=== PATIENT | female | born 1995 | race Caucasian/White ===

== ENCOUNTER 2021-10-30 05:07 | Inpatient (IN) ==
[2021-10-30] MEDS ORDERED: CITRIC ACID/SODIUM CITRATE 30 ML UDCUP PO ONE (05:21)
[2021-10-30] MEDS ORDERED: TRANEXAMIC ACID 1,000 MG in SODIUM CHLORIDE 0.9% 100 ML IV PRN (05:21)
[2021-10-30] MEDS ORDERED: CARBOPROST TROMETHAMINE 250 MCG/ML AMP IM PRN (05:21)
[2021-10-30] MEDS ORDERED: OXYTOCIN/LR 20 UNIT/1,000 ML BAG IV ONE ×3 (05:21→12:10)
[2021-10-30] MEDS ORDERED: miSOPROStoL 200 MCG TABLET RECTAL PRN (05:21)
[2021-10-30] MEDS ORDERED: METHYLERGONOVINE 0.2 MG/1 ML AMP IM PRN (05:21)
[2021-10-30] MEDS ORDERED: FAMOTIDINE 20 MG/2 ML VIAL IV ONE (05:21)
[2021-10-30] MEDS ORDERED: ceFAZolin 2,000 MG/50 ML DUPLEX IV ONE (05:21)
[2021-10-30] MEDS: LACTATED RINGERS 1,000 ML IV SCH ×4 (05:45→21:18)
[2021-10-30 06:14] LABS: Basophils % 0.4 % (0.0-0.8); Eosinophils # 0.1 10*3/uL (0.0-0.87); Eosinophils % 1.1 % (0.00-10.9); Hemoglobin 10.7 GM/DL (12.0-16.0); Immature Granulocytes % 2.5 %; Immature Granulocytes Absolute 0.27 #; Lymphocytes # 3.2 10*3/uL (1.4-4.0); Lymphocytes % 29.5 % (21.3-54.2); Mean Corpuscular HGB Conc 32.4 GM/DL (32-36); Mean Corpuscular Volume 81.7 FL (87-102); Mean Platelet Volume 11.4 FL (9.6-12.0); Monocytes # 0.9 10*3/uL (0.11-0.8); Monocytes % 8.1 % (1.7-12.7); Neutrophils % 58.4 % (38.7-73.9); Platelet Count 158 T/CUMM (130-400); Red Blood Count 4.04 MC/CUMM (3.8-5.5); Red Cell Distribution Width 14.5 % (9.3-17.3); White Blood Count 10.8 T/CUMM (4-12)
[2021-10-30] MEDS ORDERED: PHENYLEPHRINE 1 MG/10 ML SYRINGE IV ONE (06:53)
[2021-10-30] MEDS ORDERED: ONDANSETRON 4 MG/2 ML VIAL ONE (06:53)
[2021-10-30] MEDS ORDERED: ACETAMINOPHEN INJ 1,000 MG/100 ML VIAL IV ONE (06:53)
[2021-10-30] MEDS ORDERED: BUPIVACAINE SPINAL 0.75% 2 ML AMP SPINAL ONE (06:53)
[2021-10-30] MEDS ORDERED: KETOROLAC 30 MG/1 ML VIAL ONE (06:53)
[2021-10-30] MEDS ORDERED: buprenorphine HCL 0.3 MG/ML VIAL ONE (06:54)
[2021-10-30] MEDS ORDERED: SODIUM CHLORIDE 0.9% 0 ML IV ONE (07:00)
[2021-10-30] MEDS ORDERED: TRANEXAMIC ACID 1,000 MG/10 ML VIAL ONE (07:00)
[2021-10-30] MEDS ORDERED: miSOPROStoL 200 MCG TABLET ONE (07:00)
[2021-10-30] MEDS ORDERED: CARBOPROST TROMETHAMINE 250 MCG/ML AMP IM ONE (07:01)
[2021-10-30] MEDS ORDERED: METHYLERGONOVINE 0.2 MG/1 ML AMP ONE (07:01)
[2021-10-30 08:11] LABS: Bacteria,Urine Occasional /HPF (Few); Mucus,Urine Few /LPF (Occasional); RBC,Urine 4 /HPF (0-4); Squamous Epithelial Cell,Urine Occasional /HPF (0-10)
[2021-10-30 08:12] LABS: Bilirubin,Urine Negative (Negative); Blood, Urine Trace mg/dL (Negative); Glucose,Urine (UA) Negative (Negative); Ketones,Urine Negative (Negative); Nitrite,Urine Negative (Negative); Protein,Urine Negative (Negative); Urine Appearance Clear (Clear); Urine Color Yellow (Yellow); Urine Urobilinogen 0.2 eU/dL (<2.0)
[2021-10-30 08:16] LABS: Cord Arterial Blood HCO3 20.7 MMOL/L
[2021-10-30 08:19] LABS: Cord Venous Blood HCO3 21.7 MMOL/L; Cord Venous Blood PCO2 42.9 MMHG; Cord Venous Blood PO2 36.3
[2021-10-30] MEDS ORDERED: propofoL 200 MG/20 ML VIAL IV ONE (08:22)
[2021-10-30] MEDS: LABETALOL 200 MG TABLET PO SCH ×3 (09:22→20:09)
[2021-10-30] MEDS ORDERED: RHO(D) IMMUNE GLOBULIN 300 MCG SYRINGE IM ONE (12:10)
[2021-10-30] MEDS ORDERED: ACETAMINOPHEN 325 MG TABLET PO PRN (12:10)
[2021-10-30] MEDS ORDERED: LANOLIN 50% CREAM 0.3 OZ TUBE TOP PRN (12:10)
[2021-10-30] MEDS ORDERED: MEASLES/MUMPS/RUBELLA VACCINE 0.5 ML VIAL SUBCUT ONE (12:10)
[2021-10-30] MEDS ORDERED: DIPH/TET/ACEL PERT BOOSTER VACCINE 0.5 ML VIAL IM ONE (12:10)
[2021-10-30] MEDS ORDERED: WITCH HAZEL PADS 100/JAR TOP PRN (12:10)
[2021-10-30] MEDS ORDERED: HYDROCORTISONE 2.5% RECTAL CREAM 30 GM TUBE TOP PRN (12:10)
[2021-10-30] MEDS ORDERED: ONDANSETRON 4 MG/2 ML VIAL IV PRN (12:10)
[2021-10-30] MEDS ORDERED: oxyCODONE/ACETAMINOPHEN 5-325 MG TABLET PO PRN ×2 (12:10)
[2021-10-30] MEDS ORDERED: BENZOCAINE 20%/MENTHOL 0.5% SPRAY 56 GM CAN TOP PRN (12:10)
[2021-10-30] MEDS ORDERED: BISACODYL 10 MG SUPP RECTAL PRN (12:10)
[2021-10-30] MEDS: KETOROLAC 30 MG/1 ML VIAL IV SCH ×2 (14:07→20:10)
[2021-10-30] MEDS: ACETAMINOPHEN 500 MG TABLET PO SCH ×2 (15:21→22:58)
[2021-10-30] MEDS: DOCUSATE SODIUM 100 MG CAPSULE PO SCH ×2 (15:21→20:22)
[2021-10-31] MEDS: KETOROLAC 30 MG/1 ML VIAL IV SCH (02:17)
[2021-10-31] MEDS: ACETAMINOPHEN 500 MG TABLET PO SCH (04:18)
[2021-10-31 05:41] LABS: Basophils % 0.3 % (0.0-0.8); Eosinophils # 0.2 10*3/uL (0.0-0.87); Eosinophils % 1.8 % (0.00-10.9); Hematocrit 28.4 VOL% (35.7-47.0); Hemoglobin 9.3 GM/DL (12.0-16.0); Immature Granulocytes % 1.9 %; Immature Granulocytes Absolute 0.18 #; Lymphocytes # 2.5 10*3/uL (1.4-4.0); Lymphocytes % 25.6 % (21.3-54.2); Mean Corpuscular HGB Conc 32.7 GM/DL (32-36); Mean Corpuscular Volume 82.1 FL (87-102); Mean Platelet Volume 10.8 FL (9.6-12.0); Monocytes # 0.8 10*3/uL (0.11-0.8); Neutrophils % 62.4 % (38.7-73.9); Platelet Count 179 T/CUMM (130-400); Red Blood Count 3.46 MC/CUMM (3.8-5.5); Red Cell Distribution Width 14.9 % (9.3-17.3); White Blood Count 9.7 T/CUMM (4-12)
[2021-10-31] MEDS: LABETALOL 200 MG TABLET PO SCH ×3 (08:51→20:42)
[2021-10-31] MEDS: DOCUSATE SODIUM 100 MG CAPSULE PO SCH ×3 (08:51→20:35)
[2021-10-31] MEDS: IBUPROFEN 800 MG TABLET PO PRN ×2 (08:53→19:40)
[2021-10-31] MEDS ORDERED: FUROSEMIDE 20 MG TABLET PO ONE ×2 (14:00)
[2021-10-31] MEDS ORDERED: SIMETHICONE CHEW 80 MG TABLET PO PRN (19:34)
[2021-10-31] MEDS: FUROSEMIDE 20 MG TABLET PO SCH (20:43)
[2021-11-01 08:51] VITALS: BP 129/64
[2021-11-01] MEDS: LABETALOL 200 MG TABLET PO SCH (09:11)
[2021-11-01] MEDS: DOCUSATE SODIUM 100 MG CAPSULE PO SCH (09:12)
[2021-11-01] MEDS: FUROSEMIDE 20 MG TABLET PO SCH (09:12)
== END 2021-11-01 11:20 | disposition home or self-care (01) | DRG 787 ==
LOC: N.LD 05:07 → N.OB 12:45
PROVIDERS: ADMIT Specialist; ATTEND Specialist
PROC: LDCSECT (ICD-10-PCS; 2021-10-30 07:10)